=== PATIENT | female | born 1965 | race Caucasian/White ===

== ENCOUNTER 2024-11-10 13:15 | Emergency (ER) | payer BC ==
[~2024-11-10] VITALS: Ht 149.9 cm; Wt 52.2 kg
[2024-11-10 13:21] VITALS: BP 144/88; TEMP 98.5; O2SAT 96
== END 2024-11-10 13:41 | disposition home or self-care (01) ==
LOC: ER 13:22
DX: B34.9 Viral infection, unspecified (principal); R09.81 Nasal congestion; R51.9 Headache, unspecified

== ENCOUNTER 2024-12-20 08:56 | Emergency (ER) | payer BC ==
[~2024-12-20] VITALS: Ht 149.9 cm; Wt 51.7 kg
[2024-12-20 09:01] VITALS: BP 133/84
[2024-12-20] MEDS ORDERED: ACETAMINOPHEN ES 500 MG TABLET ONE (10:13)
[2024-12-20 10:24] VITALS: TEMP 99
[2024-12-20] MEDS: ACETAMINOPHEN 325 MG TABLET PO ONE (10:24)
[2024-12-20] MEDS ORDERED: OSEL75CA PO (11:32)
[2024-12-20 12:16] VITALS: O2SAT 99
== END 2024-12-20 12:17 | disposition home or self-care (01) ==
LOC: ER 09:07
DX: J10.1 Influenza due to other identified influenza virus with other respiratory manifestations (principal); I10 Essential (primary) hypertension; E78.5 Hyperlipidemia, unspecified; Z20.822 Contact with and (suspected) exposure to COVID-19
CPT/HCPCS: 71045-TC

== ENCOUNTER 2025-05-11 08:45 | Outpatient (CLI) | payer BC ==
[~2025-05-11 08:45] MED LIST: OSEL75CA PO
[2025-05-11 09:50] LABS: APPEARANCE,URINE CLEAR (CLEAR); BILIRUBIN,URINE NEGATIVE (NEGATIVE); BLOOD, URINE NEGATIVE Ery/uL (NEGATIVE); COLOR,URINE YELLOW (YELLOW); KETONES,URINE NEGATIVE (NEGATIVE); LEUKOCYTE ESTERASE ,URINE 1+ (NEGATIVE); NITRITE, URINE NEGATIVE (NEGATIVE); PROTEIN,URINE NEGATIVE (NEGATIVE); UGLUCOSE NEGATIVE (NEGATIVE); UROBILINOGEN,URINE 0.2 EU/dL (0.2)
[2025-05-11 10:10] LABS: BASOPHILS # (AUTO) 0.1 K/uL (0.0-0.2); BASOPHILS % (AUTO) 0.9 % (0.0-2.0); EOSINOPHILS # (AUTO) 0.2 K/uL (0.0-0.7); EOSINOPHILS % (AUTO) 2.6 % (0.0-6.0); HEMATOCRIT 45 % (33-45); HEMOGLOBIN 15.2 g/dL (11.5-14.8); LYMPHOCYTES # (AUTO) 2.6 K/uL (0.8-4.8); LYMPHOCYTES % (AUTO) 43.9 % (20.0-44.0); MEAN CORPUSCULAR HEMOGLOBIN 31 PG (26.0-33.0); MEAN CORPUSCULAR HGB CONC 34 g/dl (31.0-36.0); MEAN CORPUSCULAR VOLUME 92 fL (82-100); MONOCYTES # (AUTO) 0.4 K/uL (0.1-1.30); MONOCYTES % (AUTO) 6.3 % (2.0-12.0); NEUTROPHILS # (AUTO) 2.7 K/uL (1.8-8.9); NEUTROPHILS % (AUTO) 46.3 % (43.0-81.0); PLATELET COUNT (AUTO) 319 K/uL (150-450); RED CELL DISTRIBUTION WIDTH 12.2 % (11.5-15.0); WHITE BLOOD COUNT (AUTO) 5.8 K/uL (4.3-11.0)
[2025-05-11 10:25] LABS: ADD URINE CULTURE YES; BACTERIA,URINE Rare /HPF (None Seen); RBC,URINE 0-2 /HPF (0-2); WBC,URINE 0-2 /HPF (0-3)
[2025-05-11 11:27] LABS: THYROID STIMULATING HORMONE 1.15 uIU/mL (0.358-3.74)
[2025-05-11 11:34] LABS: ALBUMIN 4.4 g/dL (3.4-5.0); BILIRUBIN,TOTAL 0.9 mg/dL (0.2-1.0); CALCIUM, SERUM 9.5 mg/dL (8.5-10.1); CREATININE 0.6 mg/dL (0.6-1.3); MAGNESIUM 2.2 mg/dL (1.8-2.4); POTASSIUM 3.9 mmol/L (3.5-5.1); TOTAL PROTEIN, SERUM 8.8 g/dL (6.4-8.2)
[2025-05-12 03:07] LABS: VIT D, 25-HYDROXY 53.2 ng/mL (30.0-100.0)
[2025-05-12 08:12] LABS: FOLIC ACID > 20.0 ng/mL (>3.0)
== END 2025-05-11 23:59 | disposition home or self-care (01) ==
LOC: LAB 08:45
PROVIDERS: ATTEND Family Medicine
DX: M79.671 Pain in right foot (principal); M79.672 Pain in left foot
CPT/HCPCS: 36415; 73630-TC; 80053-TC; 80061-TC; 81001; 82306; 82607-TC; 82728-TC; 83735-TC; 84439-TC; 84443-TC; 84550-TC; 85025-TC; 87086-TC